=== PATIENT | female | born 1995 | race Caucasian/White ===

== ENCOUNTER 2018-02-08 18:12 | Emergency (ER) | payer SELFPAY ==
--- NOTE | 2018-02-09 13:14 | UC ---
- Progress Note Progress Note: No x-rays ordered on February 08, 2018 Discharge - Sign-Out/Discharge Documenting (check all that apply): Patient Departure All imaging exams completed and their final reports reviewed: No Studies - Discharge Plan Condition: Stable Disposition: LEFT WITHOUT BEING SEEN Referrals: No Primary Care Phys,NOPCP [Primary Care Provider] - - Billing Disposition and Condition Condition: STABLE Disposition: Left Without Being Seen
== END 2018-02-08 18:25 | disposition left against medical advice (07) ==
LOC: UCCORT 18:12
DX: Z53.21 Procedure and treatment not carried out due to patient leaving prior to being seen by health care provider (principal)

== ENCOUNTER 2018-02-09 15:53 | Emergency (ER) | payer MEDICAID ==
[2018-02-09 16:45] VITALS: BP 131/62
--- NOTE | 2018-02-09 17:12 | UC ---
UC General HPI - HPI Summary HPI Summary: pt c/o 2 week hx muffled-clogged ears and occasional pain/popping. no uri. tx with afrin plus ear wax drops with no relief. - History of Current Complaint Chief Complaint: UCEar Stated Complaint: BILATERAL EAR CONCERN Time Seen by Provider: 02/09/18 16:54 Hx Obtained From: Patient Hx Last Menstrual Period: unknown Onset/Duration: Gradual Onset Timing: Constant Pain Intensity: 5 Alleviating: nothing Associated Signs & Symptoms: Negative: Fever, Headache - Allergy/Home Medications Allergies/Adverse Reactions: Allergies Allergy/AdvReac Type Severity Reaction Status Date / Time amoxicillin [From Augmentin] Allergy Hives Verified 02/09/18 16:40 clavulanic acid Allergy Hives Verified 02/09/18 16:40 [From Augmentin] Home Medications: Home Medications ALPRAZolam TAB* [Xanax TAB*] 0.5 mg PO TID PRN 02/09/18 [History Confirmed 02/09] Sertraline* [Zoloft*] 200 mg PO DAILY 02/09/18 [History Confirmed 02/09/18] lamoTRIgine TAB(*) [LaMICtal TAB(*)] 100 mg PO BEDTIME 02/09/18 [History Confirmed 02/09/18] PMH/Surg Hx/FS Hx/Imm Hx Previously Healthy: Yes - Surgical History Surgical History: None - Family History Known Family History: Positive: Cardiac Disease, Hypertension - Social History Occupation: Employed Full-time Alcohol Use: Occasionally Substance Use Type: None Smoking Status (MU): Light Every Day Tobacco Smoker - Immunization History Vaccination Up to Date: Yes Review of Systems Constitutional: Negative Skin: Negative Eyes: Negative ENT: Ear Ache Respiratory: Negative Cardiovascular: Negative Gastrointestinal: Negative Genitourinary: Negative Motor: Negative Neurovascular: Negative Musculoskeletal: Negative Neurological: Negative Psychological: Negative Is Patient Immunocompromised?: No All Other Systems Reviewed And Are Negative: Yes Physical Exam Triage Information Reviewed: Yes Appearance: Well-Appearing Vital Signs: Initial Vital Signs Temp 97.5 F 02/09/18 16:38 Pulse 74 02/09/18 16:38 Resp 18 02/09/18 16:38 BP 131/62 02/09/18 16:38 Pulse Ox 100 02/09/18 16:38 Vital Signs Reviewed: Yes Eyes: Positive: Conjunctiva Clear ENT: Positive: Pharynx normal, Other - TM's obstructed by cerumen. No mastoid tenderness or auricular adenopathy or pain on tug.. Negative: Nasal congestion , Nasal drainage Neck: Positive: Supple, Nontender, No Lymphadenopathy Respiratory: Positive: Lungs clear, Normal breath sounds Cardiovascular: Positive: RRR, No Murmur Abdomen Description: Positive: Nontender, No Organomegaly, Soft Bowel Sounds: Positive: Present Musculoskeletal: Positive: ROM Intact Neurological: Positive: Alert Psychological: Positive: Age Appropriate Behavior Skin Exam: Normal Re-Evaluation - Re-Evaluation First Eval Re-Evaluation Time: 17:41 Change: Improved - tm's naylor and canals clear. L ear feels better but R ear stil feeling plugged. Course/Dx - Course Course Of Treatment: NO OM, OE OR MASTOIDITIS - Differential Dx - Multi-Symptom Provider Diagnoses: cerumen impaction AU. eustachian tube dysfunction Discharge - Sign-Out/Discharge Documenting (check all that apply): Patient Departure All imaging exams completed and their final reports reviewed: No Studies - Discharge Plan Condition: Stable Disposition: HOME Patient Education Materials: Cerumen Impaction (ED), Earache (ED) Referrals: Simon Blum MD [Medical Doctor] - Additional Instructions: START FLONASE DAILY. USE AN ORAL DECONGESTANT FOR THE NEXT 3 DAYS. CALL THE OFFICE OF DR BLUM IN AM TO BE SEEN IN [place] ON 02/15/18 FOR A RECHECK. - Billing Disposition and Condition Condition: STABLE Disposition: Home
== END 2018-02-09 17:52 | disposition home or self-care (01) ==
LOC: UCCORT 15:53
DX: H61.23 Impacted cerumen, bilateral (principal); H69.93 Unspecified Eustachian tube disorder, bilateral; F17.210 Nicotine dependence, cigarettes, uncomplicated; Z88.1 Allergy status to other antibiotic agents
CPT/HCPCS: 99203; G0463

== ENCOUNTER 2018-05-31 17:11 | Emergency (ER) | payer OTHER ==
[2018-05-31 18:06] VITALS: BP 132/65
--- NOTE | 2018-05-31 18:24 | UC ---
General HPI - HPI Summary HPI Summary: 05/28, PT NOTED REDNESS TO HER L BREAST. BY 05/29, IT WAS MUCH WORSE. SHE WAS OUT OF STATE AND WENT TO AN . THEY TX FOR CELLULITIS WITH BACTRIM AND SHE REMOVED A NIPPLE RING. SHE IS NOW HOME AND CAME IN FOR A RECHECK. SHE NOTES HER BODY ACHES HAVE RESOLVED AND NOTES LESS REDNESS TO SITE. DENIES HX MRSA, FEVER, DM. - History of Current Complaint Chief Complaint: UCSkin Stated Complaint: LEFT BREAST SKIN CONCERN Time Seen by Provider: 05/31/18 17:56 Hx Obtained From: Patient Hx Last Menstrual Period: 05/30/18 Pain Intensity: 2 Associated Signs & Symptoms: Negative: Fever - Allergy/Home Medications Allergies/Adverse Reactions: Allergies Allergy/AdvReac Type Severity Reaction Status Date / Time amoxicillin [From Augmentin] Allergy Hives Verified 05/31/18 17:58 clavulanic acid Allergy Hives Verified 05/31/18 17:58 [From Augmentin] Home Medications: Home Medications Ibuprofen TAB* [Motrin TAB* 800 MG] 1 tab Q8H PRN 05/31/18 [History Confirmed ] Sulfamethox/Trimethoprim DS* [Bactrim DS 800/160 TAB*] 1 tab BID 05/31/18 [ History Confirmed 05/31/18] PMH/Surg Hx/FS Hx/Imm Hx Psychological History: Anxiety, Depression, Other - ANGER - Surgical History Surgical History: Yes Surgery Procedure, Year, and Place: adenoids - Family History Known Family History: Positive: Cardiac Disease, Hypertension - Social History Occupation: Employed Full-time Alcohol Use: Occasionally Substance Use Type: None Smoking Status (MU): Never Smoked Tobacco - Immunization History Vaccination Up to Date: Yes Review of Systems All Other Systems Reviewed And Are Negative: Yes Constitutional: Positive: Negative Skin: Positive: Rash - L BREAST Eyes: Positive: Negative ENT: Positive: Negative Respiratory: Positive: Negative Cardiovascular: Positive: Negative Gastrointestinal: Positive: Negative Genitourinary: Positive: Negative Motor: Positive: Negative Neurovascular: Positive: Negative Musculoskeletal: Positive: Negative Neurological: Positive: Negative Psychological: Positive: Negative Physical Exam Triage Information Reviewed: Yes Appearance: Well-Appearing Vital Signs: Initial Vital Signs Temp 97.6 F 05/31/18 17:59 Pulse 84 05/31/18 17:59 Resp 16 05/31/18 17:59 BP 132/65 05/31/18 17:59 Pulse Ox 100 05/31/18 17:59 Vital Signs Reviewed: Yes Eyes: Positive: Conjunctiva Clear ENT: Positive: Normal ENT inspection Neck: Positive: Supple Respiratory: Positive: Lungs clear Cardiovascular: Positive: RRR Abdomen Description: Positive: Nontender Bowel Sounds: Positive: Present Musculoskeletal: Positive: ROM Intact Neurological: Positive: Alert Psychological: Positive: Age Appropriate Behavior Skin Exam: Normal, Other - L BREAST: DEEP ERYTHEMA TO UNDER SIDE OF BREAST AND MILD ERYTHEMA TO UPPER AND LATERAL BREAST. NO DIMPLING OR DISCHARGE AND NO INDURATION; HOWEVER, THE ERYTHEMA TO THE LATERAL BREAST HAS TRAVELED BEYOND THE OUTLINE FROM HER 1ST VISIT. NO CLAVICULAR OR AXILLARY ADENOPATHY. Course/Dx - Course Course Of Treatment: NO FEVER, NON TOXIC, PT IS SUBJECTIVELY BETTER; HOWEVER, RASH ON LATERAL BREAST HAS SPREAD. HX, PE D/W DR CABALLERO. WILL ADD KEFLEX TO TX. ALSO, F/U ARRANGEMENTS MADE WITH LOCAL SURGEON FOR TOMORROW. DR LUCERO( WHOM I SPOKE WITH AT TIME OF VISIT) TOOK PT'S NAME SO THAT WHEN SHE CALLS HIM IN AM, SHE CAN GET IN THE SAME DAY FOR THE RECHECK. - Diagnoses Provider Diagnosis: Cellulitis of left breast Discharge - Sign-Out/Discharge Documenting (check all that apply): Patient Departure All imaging exams completed and their final reports reviewed: No Studies - Discharge Plan Condition: Stable Disposition: HOME Prescriptions: Cephalexin CAP* [Keflex CAP*] 500 mg PO TID 10 Days #30 cap Patient Education Materials: Cellulitis (DC) Forms: *Work Release Referrals: Louis Johnson [Medical Doctor] - 1 Day Additional Instructions: CONTINUE THE BACTRIM DIRECTED. CALL THE FOLLOW UP IN AM. ADVISE THEM THAT WE SPOKE TO THE SURGEON WHO WANTS TO SEE YOU TOMORROW. - Billing Disposition and Condition Condition: STABLE Disposition: Home
== END 2018-05-31 18:32 | disposition home or self-care (01) ==
LOC: UCCORT 17:11
DX: N61.0 Mastitis without abscess (principal); Z88.0 Allergy status to penicillin
CPT/HCPCS: 99212; G0463